=== PATIENT | female | born 1965 | race African-American/Black ===

== ENCOUNTER 2025-01-17 10:44 | Outpatient (AMB) | payer BC, SELFPAY ==
--- NOTE | 2025-01-17 10:46 | A.OFFPC_ITS ---
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 Laboratory Assistant Required: No Accompanied by: Self / Same As Patient Allergies No Known Allergies Allergy (Verified 01/17/25 10:50) Medication List - Last Reconciled 01/17/25 by Bessie Johnson MD losartan 100 mg PO DAILY multivitamin 1 tab PO DAILY Tobacco use date assessed: 01/17/25 Dental Screening Dental Screen Date: 01/17/25 Did you have a dental visit in the last 12 months?: Yes Did you have a dental problem in the last 6 months where you did not have access to dental care?: No Was dental information given to patient?: Patient has dentist HPI HPI Comments History of Present Illness Details The patient is a 59 year old female presenting for follow-up on chronic conditions, including hypertension and left knee pain, and for physical. Left knee pain: The patient reports persistent left knee pain since a fall in May, approximately 8 months ago, where she sprained and twisted it. She was seen at an urgent care at the time of injury, where she was told it was a sprain and was referred to physical therapy. The patient completed two months of physical therapy and continues exercises at home. While the knee feels much better and initial swelling has resolved, she still experiences discomfort in the knee, which frustrates her as a fast walker. She has also started acupuncture for stress management and her knee, attending twice a month in February and now once a month. Hypertension: The patient has a history of hypertension and reports that while her medication is well-tolerated, her blood pressure fluctuates. She takes her blood pressure medication in the morning. She drinks one cup of coffee daily. Wellness and Preventative Care: The patient is due for a gynecological visit in June 2025. She had an eye exam last month where her prescription was changed slightly. Goes to [facility]. Medical History: - Hypertension - History of ovarian cyst Social History: - Exercise: The patient is less physical ly active due to her knee injury but performs daily physical therapy exercises. - She has an elliptical at home and enjo ys walking fast. - Hydration: She is making an effort to drink more water and has a filter at her desk. [facility] Medical History (Updated 01/17/25 @ 11:34 by Bessie Johnson MD) Left knee pain Routine medical exam Acne Primary hypertension Surgical History (Updated 01/17/25 @ 12:50 by Bessie Johnson MD) History of oophorectomy, unilateral History of partial hysterectomy Previous section History of colonoscopy (~12/21/17) Family History (Updated 01/17/25 @ 11:04 by Bessie Johnson MD) Other Diabetes mellitus Primary hypertension Stroke Social History Housing: House Patient Tobacco Use Status: Never used Tobacco e-Cigarette/Vaping Use: Never Used service: No Current occupational status: employed 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 1. Little interest or pleasure in doing things: not at all 2. Feeling down, depressed, or hopeless: not at all 3. Trouble falling or staying asleep, or sleeping too much: not at all 4. Feeling tired or having little energy: not at all 5. Poor appetite or overeating: not at all 6. Feeling bad about yourself - or that you are a failure or have let yourself or your family down: not at all 7. Trouble concentrating on things, such as reading the newspaper or watching television: not at all 8. Moving or speaking so slowly that other people could have noticed. Or the opposite - being so fidgety or restless that you have been moving around a lot more than usual: not at all 9. Thoughts that you would be better off or of hurting yourself in some way: not at all Total score: 0 Depression Screening Interpretation: Negative Depression Screening Done: Yes 87297 - PHQ-9 Billing: Yes Source: Developed by Drs. Finn Peters, Allison Boyer, Brian Naqvi and colleagues, with an educational karlie from [facility]. Thrive Questionnaire Date Thrive assessed: 01/17/25 I am a: Patient What is your living situation today?: I have a steady place to live Within the past 12 months, did the food you bought not last and you didn't have the money to get more?: Never true Within the past 12 months, did you worry whether your food would run out before you got money to buy more?: Never true Do you have trouble paying for medicines?: No Do you have trouble getting transportation to medical appointments?: No Do you have trouble paying your heating and electricity bill?: No Do you have trouble taking care of your child, family member or friend?: No Do you have trouble with day-to-day activities such as bathing, preparing meals, shopping, managing finances, etc.?: No Are you currently unemployed and looking for a job?: No Are you interested in more education?: No Please select the resources that you would like help with: None Currently or been in a relationship where the following occur: No concerns reported THRIVE Score: 0 AUDIT C Alcohol Use Questionnaire (AUDIT-C) 1. How often do you have a drink containing alcohol?: Never 3. How often do you have six or more drinks on one occasion?: Never Total Score: 0 VIVIAN-7 AMB Questionnaire VIVIAN-7 Date VIVIAN - 7 assessed: 01/17/25 Feeling nervous, anxious, or on edge: 0 = Not at all Not being able to stop or control worryin = Not at all Worrying too much about different things: 0 = Not at all Trouble relaxin = Not at all Being so restless that it is hard to sit still: 0 = Not at all Becoming easily annoyed or irritable: 0 = Not at all Feeling afraid as if something awful might happen: 0 = Not at all Total VIVIAN-7 score (0-4 normal; 5-9 mild; 10-14 moderate; 15-21 severe): 0 Source: Developed by Drs. Finn Peters, Allison Boyer, Brian Naqvi and colleagues, with an educational karlie from [facility]. Review of Systems Narrative Review of Systems - Constitutional: no fevers, no chills - Cardiovascular: no chest pain, no sob - Musculoskeletal: Reports persistent left knee pain, which gets tired. - Genitourinary: Denies menopausal symptoms such as dryness. Physical exam (Primary Care) Vital Signs: Last Vital Signs Temp 96.9 F 01/17/25 10:47 Pulse 76 01/17/25 10:47 Resp 16 01/17/25 10:47 BP 130/86 01/17/25 10:47 Pulse Ox 97 01/17/25 10:47 Oxygen Delivery Method Room Air 01/17/25 10:47 BMI result Body Mass Index 26.4 Tobacco/Smoking Status: Tobacco use Status Tobacco use date assessed 01/17/25 01/17/25 10:52 Patient Tobacco Use Status Never used Tobacco 01/17/25 10:52 e-Cigarette/Vaping Use Never Used 01/17/25 10:52 PHQ-9: PHQ-9 Score PHQ-9: Total score 0 01/17/25 10:52 Depression Screening Interpretation: Negative Thrive Assessment: Date of Thrive Assessment Date Thrive assessed 01/17/25 01/17/25 10:52 Currently or been in a relationship where the following occur: No concerns reported Narrative Physical Exam - Vitals: Blood pressure is 132/82 mmHg. - HEENT: Both ears have cerumen impaction. Pharynx is non-erythematous. - Neck: Supple with no lymphadenopathy. Carotids are clear to auscultation bilaterally with no bruits. - Lungs: Clear to auscultation bilaterally with no wheezing. - Cardiovascular: Regular rate and rhythm with a soft murmur noted. - Abdomen: Non-tender and non-distended with normal bowel sounds. - Extremities: No swelling noted in the legs. - Msk: bilateral crepitus, FROM of both knees, no joint line tenderness Coding Level of Care Code Est Pt Prev Care 40-64y(41260) Add On Preventative Visit Only Diagnoses Primary hypertension I10 Left knee pain M25.562 Routine medical exam Z00.00 Additional Codes PHQ-9 - 26793 - PHQ-9 Billing: Yes ([id number]) Assessment & Plan Assessment & Plan (1) Primary hypertension: Code(s): I10 - Essential (primary) hypertension Category: Medical (2) Left knee pain: Code(s): M25.562 - Pain in left knee Category: Medical (3) Routine medical exam: Code(s): Z00.00 - Encounter for general adult medical examination without abnormal findings Category: Medical Plan Assessment and Plan 1. Left Knee Pain - The patient has had persistent left knee pain for approximately 8 months after a fall, despite physical therapy. - An X-ray of the left knee will be ordered - Depending on the results, a referral to orthopedics may be considered to evaluate for underlying soft tissue injury and facilitate her return to normal activity levels. 2. Hypertension - The patient's blood pressure is elevated in the office at 132/82 mmHg, though she reports fluctuating readings. - She is tolerating her medication. - She is advised that daily low-dose aspirin (81 mg) is acceptable for secondary prevention, given her diagnosis of hypertension and absence of bleeding history. - We will check her cholesterol. 3. Health Maintenance - The patient is due for labs. - A lipid panel, comprehensive metabolic panel, and urine microalbumin will be ordered. - A referral will be placed for a gynecology visit for Spring 2025 4. Cerumen Impaction - Bilateral cerumen impaction was noted on exam. Pt will use debrox at home. 5. Stress Management - The patient utilizes acupuncture for stress, which is encouraged. Plan - An order will be placed for a 3-view X-ray of the left knee to investigate persistent pain. - A potential referral to orthopedics will be considered depending on the X-ray results. - Orders will be placed for a lipid panel, a comprehensive metabolic panel, and a urine microalbumin test. - The patient may start taking daily low-dose aspirin (81 mg) for secondary prevention. - Continue stress management techniques such as acupuncture. Patient Instructions - You will get an X-ray of your left knee. - We will be checking several labs today, including your cholesterol and kidney function. - You can take a daily baby aspirin (81mg) - Continue your efforts to drink more water. Orders: Orders Comprehensive Met. Panel 01/17/25 I10 - Essential (primary) hypertension, Z00. - Encounter for general adult medical examination without abnormal findings Lipid Panel 01/17/25 I10 - Essential (primary) hypertension, Z00. - Encounter for general adult medical examination without abnormal findings XR knee LT 3V 01/17/25 M25.562 - Pain in left knee Complete Blood Count Auto Diff 01/17/25 I10 - Essential (primary) hypertension, Z00. - Encounter for general adult medical examination without abnormal findings Microalbumin, Random (w Creat) 01/17/25 I10 - Essential (primary) hypertension, Z00. - Encounter for general adult medical examination without abnormal findings Referrals [facility] Referral Z01.419 - Encounter for gynecological examination (general) (routine) without abnormal findings
[2025-01-17 10:47] VITALS: BP 130/86; PULSE 76; RESP 16; TEMP 36.1; O2SAT 97; BMI 26.4
== END 2025-01-17 11:50 | disposition home or self-care (01) ==
LOC: HO.HMCHD 10:45
PROVIDERS: PCP Internal Medicine; Visit Provider Internal Medicine
DX: Z00.00 Encounter for general adult medical examination without abnormal findings (principal); I10 Essential (primary) hypertension; M25.562 Pain in left knee

== ENCOUNTER 2025-01-17 10:44 | Outpatient (REF) | payer BC, SELFPAY ==
--- NOTE | ~2025-01-17 | XR_ITS ---
EXAMINATION: XR KNEE, LEFT CLINICAL INFORMATION: M25.562 - Pain in left knee COMPARISON: None available. TECHNIQUE: AP lateral and sunrise views of the left knee. FINDINGS: Degenerative changes with joint space narrowing involving medial lateral compartment. No acute fracture or dislocation. No suprapatellar bursa joint effusion. No lytic or blastic lesions. Osteopenia versus osteoporosis. Irregularities in the intercondylar tibial eminence. XR/XR knee LT 3V IMPRESSION: Bicompartmental osteoarthrosis/osteoarthritis with irregularity in the intercondylar tibial eminence. Internal derangement cannot be excluded. Electronically signed by: Alok Timmons MD 01/17/2025 01:34 PM EST
== END 2025-01-17 10:45 | disposition home or self-care (01) ==
LOC: HO.XRAY 10:44
PROVIDERS: PCP Internal Medicine; Visit Provider Internal Medicine
DX: Z00.00 Encounter for general adult medical examination without abnormal findings (principal); M25.562 Pain in left knee; I10 Essential (primary) hypertension
CPT/HCPCS: 73562; 96127

== ENCOUNTER 2025-01-17 12:00 | Outpatient (REF) | payer BC, SELFPAY ==
[2025-01-17 13:03] LABS: MANUAL DIFF FLAG NO
[2025-01-17 13:09] LABS: Hematocrit 37.6 % (37.0-47.0); Hemoglobin 12.5 g/dl (12.0-16.0); Imm Gran Abs Auto 0.01 X10*3/uL (0.00-0.03); Imm Gran Pct Auto 0.2 % (0.0-0.4); Lymphocytes Absolute Auto 1.9 X10*3/uL (1.2-4.9); Mean Corpuscular HGB Conc 33.2 g/dl (31.0-35.0); Mean Corpuscular Hemoglobin 28.2 pg (27.0-33.0); Mean Corpuscular Volume 84.9 fL (80.0-98.0); NRBC Abs Auto 0.000 X10*3/uL (0.0-0.012); NRBC Pct Auto 0.0 /100WBC (0.0-0.2); Platelet Count 265 X10*3/uL (160-400); Red Blood Count 4.43 X10*6/uL (4.20-5.50); White Blood Count 6.1 X10*3/uL (4.8-10.8)
[2025-01-17 13:27] LABS: Alanine Aminotransferase 15 U/L (0-31); Albumin Level 4.8 g/dL (3.5-5.0); Alkaline Phosphatase 82 U/L (39-117); Anion Gap 12 (12-20); Aspartate Amino Transferase 47 U/L (5-31); Blood Urea Nitrogen 12 mg/dL (9-16); Calcium 9.6 mg/dL (8.4-10.2); Carbon Dioxide 28 mmol/L (22-29); Chloride 106 mmol/L (96-108); Cholesterol 231 mg/dL (<200); Estimated Glomerular Filt Rate > 60; HDL Cholesterol 81 mg/dL (>40); Potassium 3.7 mmol/L (3.3-5.1); Sodium 142 mmol/L (135-145); Total Protein 7.8 g/dL (6.5-8.0); Triglycerides 53 mg/dL (<150)
== END 2025-01-17 12:01 | disposition home or self-care (01) ==
LOC: HO.10HDL 12:00
PROVIDERS: Visit Provider Internal Medicine
DX: Z00.00 Encounter for general adult medical examination without abnormal findings (principal); I10 Essential (primary) hypertension
CPT/HCPCS: 36415; 80053; 80061; 82570; 85025

== ENCOUNTER → 2025-01-17 13:00 | Outpatient (BNV) | payer BC, SELFPAY | PROVIDERS: PCP Internal Medicine; Visit Provider Radiology Diagnostic Radiology | DX: M17.12 Unilateral primary osteoarthritis, left knee (principal) | CPT/HCPCS: 73562 ==